=== PATIENT | female | born 1930 | race Caucasian/White ===

== ENCOUNTER 2016-10-25 14:25 | Outpatient (CLI) | payer MEDICARE ==
[2016-10-25 15:24] LABS: #Basophils 0.1 thou/uL (0.0-0.2); #Eosinphils 0.1 thou/uL (0.0-0.7); #Monocytes 0.6 thou/uL (0.11-0.59); #Neutrophils 4.6 thou/uL (1.40-6.50); %Basophils 0.8 % (0.0-1.0); %Eosinophils 2.2 % (0.0-10.0); %Lymphocytes 15.6 % (21.0-51.0); %Monocytes 9.9 % (0.0-10.0); Hematocrit 29.8 % (36.0-47.0); Mean Platelet Volume 8.7 fL (7.4-10.4); Red Blood Cell (RBC) Count 3.86 mill/uL (4.20-5.40); White Blood Cell (WBC) Count 6.4 thou/uL (4.8-10.8)
[2016-10-25 15:29] LABS: ALT (SGPT) 11 U/L (0-55); AST (SGOT) 24 U/L (5-34); Alkaline Phosphatase 120 U/L (40-150); Anion Gap 14 mmol/L (10-20); BUN (Urea Nitrogen) 25 mg/dL (9.8-20.1); Calc. Creatinine Clearance 0 mL/min (70-130); Calcium 8.6 mg/dL (7.8-10.44); Carbon Dioxide 25 mmol/L (23-31); Chloride 110 mmol/L (98-107); Estimated GFR-MDRD 38; Globulin 2.9 g/dL (2.4-3.5); Protein, Total 6.6 g/dL (5.8-8.1)
--- NOTE | 2016-10-26 07:33 | RAD ---
CHEST TWO VIEWS HISTORY: Dyspnea. COMPARISON: 10/30/2014 FINDINGS: The cardiac silhouette is magnified and enlarged. The pulmonary vasculature is at the u pper limits of normal. The mediastinum is midline with aortic calcification and sternotomy wires. Blunting of the left lateral costophrenic angle has the appearance of left pleural fluid. IMPRESSION 1. Cardiomegaly. 2. Left pleural fluid with pulmonary vascular congestion. 3. Atherosclerosis. POS: [facility]
== END 2016-10-25 14:26 | disposition home or self-care (01) ==
LOC: NAV RAD 14:25
PROVIDERS: ATTEND Internal Medicine
DX: I11.0 Hypertensive heart disease with heart failure (principal); I50.22 Chronic systolic (congestive) heart failure; R06.02 Shortness of breath; D50.0 Iron deficiency anemia secondary to blood loss (chronic); I45.81 Long QT syndrome; I70.90 Unspecified atherosclerosis; I45.10 Unspecified right bundle-branch block; R00.1 Bradycardia, unspecified
CPT/HCPCS: 71020; 80053; 82607; 82728; 82746; 83880; 84443; 85025; 93005

== ENCOUNTER 2016-11-01 14:54 | Outpatient (CLI) | payer MEDICARE ==
[2016-11-01 15:38] LABS: Anion Gap 16 mmol/L (10-20); BUN (Urea Nitrogen) 21 mg/dL (9.8-20.1); Calc. Creatinine Clearance 0 mL/min (70-130); Calcium 8.6 mg/dL (7.8-10.44); Carbon Dioxide 24 mmol/L (23-31); Chloride 108 mmol/L (98-107); Estimated GFR-MDRD 32
[2016-11-01 17:28] LABS: #Basophils 0.1 thou/uL (0.0-0.2); #Eosinphils 0.1 thou/uL (0.0-0.7); #Lymphocytes 0.9 thou/uL (1.20-3.40); #Monocytes 0.7 thou/uL (0.11-0.59); #Neutrophils 4.1 thou/uL (1.40-6.50); %Basophils 1.3 % (0.0-1.0); %Lymphocytes 15.7 % (21.0-51.0); %Monocytes 11.9 % (0.0-10.0); Anisocytosis SLIGHT = 6-15 cells (100X) (0-5/hpf); Hematocrit 29.7 % (36.0-47.0); Hypochromia SLIGHT = 6-15 cells (100X) (0-5/hpf); Mean Platelet Volume 8.5 fL (7.4-10.4); Microcytosis SLIGHT = 6-15 cells (100X) (0-5/hpf); Ovalocytes SLIGHT = 2-5 cells (100X) (0-1/hpf); Poikilocytosis SLIGHT = 6-15 cells (100X) (0-5/hpf); Red Blood Cell (RBC) Count 3.87 mill/uL (4.20-5.40); White Blood Cell (WBC) Count 5.9 thou/uL (4.8-10.8)
== END 2016-11-01 14:55 | disposition home or self-care (01) ==
LOC: NAVSJIPCSP 14:54
PROVIDERS: ATTEND Internal Medicine
DX: D50.0 Iron deficiency anemia secondary to blood loss (chronic) (principal); I50.22 Chronic systolic (congestive) heart failure
CPT/HCPCS: 36415; 80048; 83880; 85025; 86850; 86870; 86900; 86901

== ENCOUNTER 2016-11-02 09:25 | Inpatient (IN) | payer MEDICARE ==
[2016-11-02] MEDS ORDERED: Ondansetron ODT 4 MG TAB PO PRN (10:01)
[2016-11-02] MEDS ORDERED: Furosemide 40 MG/4 ML VIAL IVP SCH (10:15)
[2016-11-02] MEDS ORDERED: Ferrous Sulfate 325 MG TAB PO SCH (10:30)
[2016-11-02] MEDS ORDERED: Nebivolol HCl 10 MG TAB PO SCH (10:30)
[2016-11-02] MEDS ORDERED: Levothyroxine Sodium 150 MCG TAB PO SCH (10:30)
[2016-11-02] MEDS ORDERED: Potassium Chloride 10 MEQ TAB PO SCH (10:30)
[2016-11-02] MEDS ORDERED: Venlafaxine HCl XR 75 MG CAP PO SCH (10:45)
[2016-11-02 12:22] LABS: Anion Gap 14 mmol/L (10-20); BUN (Urea Nitrogen) 22 mg/dL (9.8-20.1); Calc. Creatinine Clearance 38 mL/min (70-130); Calcium 8.3 mg/dL (7.8-10.44); Carbon Dioxide 24 mmol/L (23-31); Chloride 108 mmol/L (98-107); Estimated GFR-MDRD 35
--- NOTE | 2016-11-02 12:40 | RAD ---
RADIOGRAPH CHEST 2 VIEWS: Date: 11/02/16. Time: 10:36 a.m. HISTORY: An 86-year-old female with congestive heart failure. Followup. COMPARISON: 10/25/16. FINDINGS: Severe cardiomegaly. Diffuse pulmonary vascular engorgement. Large left pleural effusion has incre ased in volume since the prior study. Opacification of the left lower lobe has worsened since the p rior study. Little or no right pleural effusion. Sternotomy wires, and surgical clips over the lef t anterior portion of the heart. No roselia pulmonary edema. No pneumothorax. IMPRESSION: 1. Slight interval increase in volume of now large left pleural effusion. 2. Interval worsening of opacification of lower lobe, presumably atelectasis, although it would be difficult to exclude pneumonia. 3. Cardiomegaly and pulmonary vascular engorgement is evidence for mild congestive heart failure. 4. Coronary artery atherosclerotic disease: status post coronary artery bypass graft surgery. 5. No roselia pulmonary edema. GABY [] POS: [facility]
[2016-11-02 13:42] LABS: #Basophils 0.1 thou/uL (0.0-0.2); #Eosinphils 0.2 thou/uL (0.0-0.7); #Monocytes 0.6 thou/uL (0.11-0.59); %Basophils 1.3 % (0.0-1.0); %Eosinophils 4.8 % (0.0-10.0); %Lymphocytes 19.7 % (21.0-51.0); %Monocytes 12.1 % (0.0-10.0); Hematocrit 29.2 % (36.0-47.0); Mean Platelet Volume 10.6 fL (7.4-10.4); Red Blood Cell (RBC) Count 3.79 mill/uL (4.20-5.40); White Blood Cell (WBC) Count 4.8 thou/uL (4.8-10.8)
[2016-11-02] MEDS ORDERED: Furosemide 40 MG/4 ML VIAL SLOW IVP SCH (14:45)
[2016-11-02] MEDS ORDERED: Non-Formulary Item 1 EACH (Hydralazine Hcl [Hydralazine Hcl] 50 MG) PO SCH (15:00)
[2016-11-02 18:21] LABS: Hematocrit 34.1 % (36.0-47.0)
[2016-11-02 18:25] LABS: Anion Gap 14 mmol/L (10-20); BUN (Urea Nitrogen) 23 mg/dL (9.8-20.1); Calc. Creatinine Clearance 28 mL/min (70-130); Calcium 8.5 mg/dL (7.8-10.44); Carbon Dioxide 27 mmol/L (23-31); Chloride 108 mmol/L (98-107); Estimated GFR-MDRD 25
[2016-11-02] MEDS: Temazepam 15 MG CAP PO SCH (20:00)
[2016-11-02] MEDS: Atorvastatin Calcium 20 MG TAB PO SCH (20:00)
[2016-11-02] MEDS ORDERED: Simvastatin 40 MG TAB PO SCH (21:00)
[2016-11-02] MEDS ORDERED: Non-Formulary Item 1 EACH (Temazepam [Restoril] 30 MG) PO SCH (21:00)
[2016-11-03 05:50] LABS: Anion Gap 12 mmol/L (10-20); BUN (Urea Nitrogen) 26 mg/dL (9.8-20.1); Calc. Creatinine Clearance 32 mL/min (70-130); Calcium 8.2 mg/dL (7.8-10.44); Carbon Dioxide 28 mmol/L (23-31); Chloride 109 mmol/L (98-107); Estimated GFR-MDRD 29
[2016-11-03] MEDS: Furosemide 40 MG/4 ML VIAL SLOW IVP SCH ×2 (06:11→14:40)
[2016-11-03] MEDS: Levothyroxine Sodium 150 MCG TAB PO SCH (06:11)
[2016-11-03] MEDS: Ferrous Sulfate 325 MG TAB PO SCH (08:30)
[2016-11-03] MEDS: Potassium Chloride 10 MEQ TAB PO SCH (08:30)
[2016-11-03] MEDS ORDERED: Furosemide 80 MG TAB PO SCH (09:00)
[2016-11-03] MEDS ORDERED: Non-Formulary Item 1 EACH (Ferrous Sulfate [Ferrous Sulfate] 325 MG) PO SCH (09:00)
[2016-11-03] MEDS ORDERED: LEVOTHYROXINE SODIUM 150 MCG PO SCH (09:00)
[2016-11-03] MEDS ORDERED: Potassium Chloride 20 MEQ TAB PO SCH (09:00)
[2016-11-03] MEDS ORDERED: Non-Formulary Item 1 EACH (Olmesartan Medoxomil [Benicar] 40 MG) PO SCH (09:00)
[2016-11-03] MEDS: Nebivolol HCl 10 MG TAB PO SCH (09:20)
[2016-11-03] MEDS: Venlafaxine HCl XR 75 MG CAP PO SCH (09:21)
--- NOTE | 2016-11-03 10:33 | HP ---
CHIEF COMPLAINT: Recurrent shortness of breath, hypoxemia. HISTORY OF PRESENT ILLNESS: The patient is an 86-year-old white female, well known to myself with a long history of coronary artery disease, status post myocardial infarction years ago, and followed by Cardiology with a slowly progressive congestive heart failure, who was found several months ago t o have a significant GI bleeding requiring admission to the hospital with subsequent evaluation find ing only a and gastritis, hiatal hernia, colon polyp with no significant bleeding. She had symptoms of weakness and shortness of breath. At that time, resolved with transfusion. She had had, valentee r, slowly progressive shortness of breath since that time associated with progressive dyspnea on exe rtion. She has been followed by Cardiology, specifically Dr. Delgado with medical treatment, with most recent echocardiogram apparently not available at this time, with the finding in the office of the significant mitral regurgitation, and with a scheduled followup with Dr. Delgado next week. Ho wever, she presented to the office with increasing shortness of breath and recurrent hypoxia. Evalu ation in the office showed that her creatinine had increased from 1.32-1.53 and her BNP had increase d from 788-1313. Her chest x-ray showed large left pleural effusion, with left lower lobe atelectas is and infiltrate, cardiomegaly and pulmonary congestion consistent with congestive heart failure. She had been compliant to her medications of furosemide 40 mg daily, but refused to take more this a s she stated that she was going to bathroom constantly. She was also taking her medication Bystolic 10 mg daily, olmesartan 40 mg daily, and hydralazine 50 three times daily. She also is on ferrous sulfate since her recent GI bleed and is continued on baby aspirin 81 mg daily, levothyroxine 150 mc g daily, Protonix 40 daily, simvastatin 40 nightly, temazepam 30 mg nightly, and Venlafaxine 75 mg d aily. She has been unable to remain at home and await for Cardiology apartment and therefore was ad mitted to the hospital. She was found to have a decrease in her hemoglobin from 11.2 several months ago to 8.6. It is felt this may have caused a contribution to her decompensation of congestive hea rt failure. Therefore, she was elected to be admitted to the hospital for transfusion 1 unit of pac ked cells while she was aggressively diuresed as mentioned above. Her renal function has been fairl y stable, but she appears to be having congestive heart failure. Her physical examination did in th e office show a significant mitral regurgitation and murmur. It is felt this may be the etiology of her worsening symptomatology. PAST MEDICAL HISTORY: Otherwise remarkable for cancer of the breast greater than 20 years ago, stat us post right mastectomy; longstanding history of hypertension, well controlled; hypothyroidism, wel l controlled. PAST SURGICAL HISTORY: Positive for a left knee replacement, hysterectomy. SOCIAL HISTORY: She lives with her of many years, not very active more, because of increasi ng peripheral edema and weakness. MEDICATIONS: As above. REVIEW OF SYSTEMS: HEENT: She denies any headaches, dizziness, change in vision or hearing, hoarseness or dysphagia. PULMONARY: She denies any cough except, when she lies down at nighttime. She has no sputum product ion. She denies any wheezing. CARDIOVASCULAR: She denies chest pain, orthopnea, paroxysmal nocturnal dyspnea or edema. GASTROINTESTINAL: She denies nausea, vomiting, diarrhea, constipation, or abdominal pain. GENITOURINARY: She denies dysuria, hematuria, or nocturia. Does have recurrent incontinence. MUSCULOSKELETAL: She has significant swelling and stiffness in joints, knees and lower legs with a history of cellulitis in the past. NEUROLOGIC: She denies localized numbness or weakness in arms or extremities. PHYSICAL EXAMINATION: GENERAL: The patient is an elderly obese white female, in no distress at rest on significant dyspne a on exertion. VITAL SIGNS: Showed to have blood pressure 134/58, pulse 55 and regular, respirations 18, O2 sats 9 4% on 2 liters, 89% on room air, and temperature is 95.9. HEENT: Pupils are equal, round, and react to light and accommodation. Sclerae are anicteric. Conj unctivae pale. Oral mucous membranes well hydrated. NECK: Supple, no nodes or masses. JVP is not elevated. LUNGS: Clear with decreased breath sounds in the left base. CARDIAC: Shows slow regular rhythm. There is an S4 is a 3/6 holosystolic murmur heard over the ent shweta chest and radiated to the axilla. ABDOMEN: Obese and nontender with no masses or organomegaly. EXTREMITIES: Showed 2+ edema. No clubbing, cyanosis. NEUROLOGICAL: Intact. LABORATORY DATA: Shows sodium 143, potassium 3.4, chloride 108, bicarbonate 24, BUN 22, creatinine 1.4, glucose 87, and calcium 8.3. White count 4800, hematocrit 29, and hemoglobin 8.6. Chest x-ray is as above. EKG shows sinus bradycardia. ASSESSMENT: The patient is an 86-year-old white female with a history of coronary artery disease, h ypertension, presents with increasing shortness of breath, and was found to have a large left pleura l effusion and was significantly increased mitral regurgitation murmur and increasing dyspnea on exe rtion and hypoxia on exertion. She has been found to have GI bleed in the past, which has caused he r some exacerbation of congestive heart failure. This may be causing some of her etiology of her sy mptomatology and will be admitted to the hospital for transfusion 1 unit of packed cells while aggre ssive diuresis with the Lasix 80 mg IV twice daily, monitoring renal function. We will also get an echocardiogram to evaluate left pleural effusion and CT scan without contrast and will be evaluated for possible home oxygen, prognosis is guarded. CODE STATUS: She is a full code.
[2016-11-03] MEDS ORDERED: Bisacodyl 10 MG SUPP PR PRN (16:01)
[2016-11-03] MEDS: Atorvastatin Calcium 20 MG TAB PO SCH (20:24)
[2016-11-03] MEDS: Temazepam 15 MG CAP PO SCH (20:24)
[2016-11-04] MEDS: Levothyroxine Sodium 150 MCG TAB PO SCH (06:15)
[2016-11-04] MEDS: Furosemide 40 MG/4 ML VIAL SLOW IVP SCH ×2 (06:15→14:44)
[2016-11-04] MEDS: Ferrous Sulfate 325 MG TAB PO SCH (08:55)
[2016-11-04] MEDS: Potassium Chloride 10 MEQ TAB PO SCH (08:56)
[2016-11-04] MEDS: Docusate 100 MG CAP PO SCH (08:56)
[2016-11-04] MEDS: Venlafaxine HCl XR 75 MG CAP PO SCH (08:56)
[2016-11-04] MEDS: Polyethylene Glycol 3350 17 GM Packet PO SCH (08:57)
[2016-11-04] MEDS: Nebivolol HCl 10 MG TAB PO SCH (08:58)
--- NOTE | 2016-11-04 11:14 | RAD ---
2 VIEWS CHEST: Date: 11/04/16 PROVIDED CLINICAL HISTORY: Congestive heart failure. FINDINGS: Comparison with 11/02/16. The cardiac silhouette remains enlarged. Median sternotomy changes and atherosclerosis are redemonst rated. Left basilar pleural parenchymal opacity appears unchanged as compared with the prior study. Hiatal hernia is suspected. IMPRESSION: Stable radiographic appearance of the chest. POS: [facility]
[2016-11-04 11:47] LABS: Anion Gap 11 mmol/L (10-20); BUN (Urea Nitrogen) 30 mg/dL (9.8-20.1); Calc. Creatinine Clearance 34 mL/min (70-130); Calcium 8.1 mg/dL (7.8-10.44); Carbon Dioxide 29 mmol/L (23-31); Chloride 107 mmol/L (98-107); Estimated GFR-MDRD 30
[2016-11-04 11:57] LABS: #Basophils 0.1 thou/uL (0.0-0.2); #Eosinphils 0.3 thou/uL (0.0-0.7); #Lymphocytes 0.9 thou/uL (1.20-3.40); #Monocytes 0.7 thou/uL (0.11-0.59); #Neutrophils 3.9 thou/uL (1.40-6.50); %Basophils 1.3 % (0.0-1.0); %Lymphocytes 15.7 % (21.0-51.0); %Monocytes 12.3 % (0.0-10.0); Anisocytosis SLIGHT = 6-15 cells (100X) (0-5/hpf); Burr Cells SLIGHT = 2-5 cells (100X) (0-1/hpf); Hematocrit 31.6 % (36.0-47.0); Hypochromia SLIGHT = 6-15 cells (100X) (0-5/hpf); Mean Platelet Volume 8.2 fL (7.4-10.4); Microcytosis SLIGHT = 6-15 cells (100X) (0-5/hpf); Ovalocytes SLIGHT = 2-5 cells (100X) (0-1/hpf); Poikilocytosis SLIGHT = 6-15 cells (100X) (0-5/hpf); Polychromasia SLIGHT = 2-3 cells (100X) (0-2/hpf); Red Blood Cell (RBC) Count 4.01 mill/uL (4.20-5.40); White Blood Cell (WBC) Count 5.9 thou/uL (4.8-10.8)
--- NOTE | 2016-11-04 15:10 | PRG ---
DATE OF SERVICE: 11/04/2016 SUBJECTIVE: The patient states she feels better with no dyspnea at rest, but has not been walking i n the room and states she still has dyspnea on exertion in the room. Has had no chest pain, orthopn ea, paroxysmal nocturnal dyspnea, or palpitations. OBJECTIVE: VITAL SIGNS: Have shown blood pressure is stable at 124/58, temperature 97, pulse 61, respirations 20, O2 sats 96% on 2 liters, but still 88% on room air at rest. Intake and output shows output only 1000 yesterday according to the nurses, but laboratory shows linda t her renal function is improved from creatinine of 1.9 to creatinine 1.62 with diuresis, her BNP ya s improved from 1399 on th ,1044, on and 828 on the 14th. Lungs still show decreased breath sounds in the bases and chest x-ray still shows a large left pleural effusion with cardiomegaly. Sk in and extremities showed no edema. ASSESSMENT: Improving acute on chronic congestive heart failure with aggressive diuresis with impro guillermina renal function and improved biochemical markers of BNP, but with persistent dyspnea on severe ex ertion as patient has improved with IV diuresis. We will continue the IV Lasix. Continue to monito r closely with repeat basic metabolic profile, BNP in the a.m. We will obtain an echocardiogram in the next 2 days when available and Cardiology consult if persistent symptoms. We will also evaluate for possible home O2 and awaiting follow up with Cardiology.
[2016-11-04] MEDS: Atorvastatin Calcium 20 MG TAB PO SCH (21:21)
[2016-11-04] MEDS: Temazepam 15 MG CAP PO SCH (21:21)
[2016-11-05 05:43] LABS: Anion Gap 12 mmol/L (10-20); BUN (Urea Nitrogen) 30 mg/dL (9.8-20.1); Calc. Creatinine Clearance 36 mL/min (70-130); Calcium 8.1 mg/dL (7.8-10.44); Carbon Dioxide 30 mmol/L (23-31); Chloride 105 mmol/L (98-107); Estimated GFR-MDRD 34
[2016-11-05] MEDS: Levothyroxine Sodium 150 MCG TAB PO SCH (06:25)
[2016-11-05] MEDS: Furosemide 40 MG/4 ML VIAL SLOW IVP SCH ×2 (06:25→14:30)
[2016-11-05] MEDS: Potassium Chloride 10 MEQ TAB PO SCH (08:07)
[2016-11-05] MEDS: Docusate 100 MG CAP PO SCH (08:08)
[2016-11-05] MEDS: Venlafaxine HCl XR 75 MG CAP PO SCH (08:08)
[2016-11-05] MEDS: Ferrous Sulfate 325 MG TAB PO SCH (08:08)
[2016-11-05] MEDS: Polyethylene Glycol 3350 17 GM Packet PO SCH (08:09)
[2016-11-05] MEDS: Nebivolol HCl 10 MG TAB PO SCH (08:10)
--- NOTE | 2016-11-05 10:57 | PRG ---
DATE OF SERVICE: 11/05/2016 SUBJECTIVE: The patient feels better, sitting up in the bed, did not sleep well last night because of getting sleeping pill too early. Denies any chest pain, no shortness of breath, but has not been ambulating in the room. OBJECTIVE: VITAL SIGNS: Shows blood pressure is 125/59, temperature 97, pulse 54, respirations 20, O2 sats 95% on 2 liters. LUNGS: Show decreased breath sounds in the left base, but no rales, rhonchi, rubs or wheezes. CARDIAC EXAMINATION: Shows regular rhythm. No gallops or murmurs. LABORATORY DATA: Shows BNP is stable at 830. Sodium is 143, potassium 3.7, chloride 105, bicarb 30 , BUN 30, creatinine down to 1.47, glucose 91, calcium 8.1. ASSESSMENT: Slowly improving congestive heart failure with persistent left pleural effusion, persis tent mitral regurgitation. PLAN: Continue IV Lasix. His renal function continued to improve diuresis. Repeat basic metabolic profile, BNP in the a.m. Obtain echocardiogram tomorrow. Ambulate more today and hopefully wean o ff oxygen, possibly discharge tomorrow.
[2016-11-05] MEDS: Atorvastatin Calcium 20 MG TAB PO SCH (21:21)
[2016-11-05] MEDS ORDERED: Temazepam 15 MG CAP PO SCH ×2 (23:00)
[2016-11-06 05:48] LABS: Anion Gap 12 mmol/L (10-20); BUN (Urea Nitrogen) 31 mg/dL (9.8-20.1); Calc. Creatinine Clearance 39 mL/min (70-130); Calcium 8.2 mg/dL (7.8-10.44); Carbon Dioxide 31 mmol/L (23-31); Chloride 105 mmol/L (98-107); Estimated GFR-MDRD 36
[2016-11-06] MEDS: Levothyroxine Sodium 150 MCG TAB PO SCH (06:16)
[2016-11-06] MEDS: Furosemide 40 MG/4 ML VIAL SLOW IVP SCH (06:16)
--- NOTE | 2016-11-06 07:32 | PRG ---
DATE OF SERVICE: 11/06/2016 SUBJECTIVE: The patient feels better with no symptoms of shortness of breath at rest and with walki ng back and forth in the bathroom, but is still having need for oxygen according to the nurses. She is denying any chest pain or palpitations, nausea or vomiting. OBJECTIVE: Blood pressure is stable 139/64, O2 sats 94% on 2 liters, but still drops down to 88 to 89% on room air, pulse 58, temperature 97.4. Sodium improved to 144, potassium 3.7, chloride 105, b icarbonate 31, BUN stable at 31, creatinine still improved slightly to 1.38 and 1.47. GFR is improv ed slightly to 36 from admission GFR of 25. Lungs show clear except for absent breath sounds in the left base. Cardiac examination shows regular rhythm. Skin and extremities showed no edema. ASSESSMENT: Resolving congestive heart failure, improving azotemia with diuresis that appeared to s tabilize with BNP stabilizing and creatinine only improving slightly on IV Lasix. The left pleural effusion still present on physical examination and we will get chest x-ray to determine any improvem ent radiologically and will get echocardiogram today to determine severity of mitral regurg and LV d ysfunction. PLAN: Change IV Lasix to oral Lasix today to evaluate for home O2. The patient is still hypoxic wh en off of oxygen. Will have echocardiogram and chest x-ray today, possibly discharge home today or tomorrow to follow up with Dr. Delgado, registration officer, as an outpatient.
[2016-11-06] MEDS: Ferrous Sulfate 325 MG TAB PO SCH (08:40)
[2016-11-06] MEDS: Potassium Chloride 10 MEQ TAB PO SCH (08:41)
[2016-11-06] MEDS: Docusate 100 MG CAP PO SCH (08:41)
[2016-11-06] MEDS: Furosemide 80 MG TAB PO SCH ×4 (08:41→16:25)
[2016-11-06] MEDS: Nebivolol HCl 10 MG TAB PO SCH (08:44)
[2016-11-06] MEDS: Polyethylene Glycol 3350 17 GM Packet PO SCH (08:45)
[2016-11-06] MEDS: Venlafaxine HCl XR 75 MG CAP PO SCH (08:45)
[2016-11-06 16:28] VITALS: BMI 30.5
--- NOTE | 2016-11-06 18:19 | PRG ---
DATE OF SERVICE: 11/06/2016 SUBJECTIVE: The patient was sitting in the bed comfortable at rest. Still having dyspnea on walking to the bathroom. Tolerating diuretic well with significant diuresis. OBJECTIVE: Shows her blood pressure is decreased somewhat to 106/55, O2 sats 96 % on 2 liters, but drops to 88% at rest and 85% with ambulation, pulse of 61, temperature 95.8. Lungs show decreased breath sounds in the left base. No rales or rhonchi. Skin and extremities show 1-2+ edema. LABORATORY DATA: Shows a creatinine improved further to 1.38, but BNP still elevated at 1022. ASSESSMENT: Improving congestive heart failure, prerenal azotemia, but appeared to be stabilizing with persistent hypoxemia with O2 sat of 88% at rest and down to 85% with ambulation, most likely due to decompensated congestive heart failure, possible mitral regurgitation. PLAN: Prescription for home O2 at 2 liters constantly, this patient was hypoxic at rest, but also had patient with _oxygen at home ____ she does ambulate at home with only symptoms of dyspnea and hypoxia with rest. Refer Dr. Delgado next week for further evaluation and determination of further therapy after echocardiogram done. [facility]
[2016-11-06] MEDS: Atorvastatin Calcium 20 MG TAB PO SCH (20:31)
[2016-11-06] MEDS ORDERED: Temazepam 15 MG CAP PO SCH (21:00)
--- NOTE | 2016-11-06 21:06 | RAD ---
RADIOGRAPH CHEST 2 VIEWS: Date: 11-06-16 Time: 7:36 P.M. HISTORY: 86-year-old female with left pleural effusion and congestive heart failure. COMPARISON: 11-04-16 FINDINGS: Severe cardiomegaly. Air-fluid level within a large left retrocardiac mass. Large left pleural eff usion. Tiny or no right pleural effusion. The lungs are overexposed. No overt pulmonary alveolar edema. No large pneumothorax identified. Findings of previous CABG. The cardiomegaly appears wors e now than previously, but it is uncertain whether or not this is due to positional differences. Th ere has been no other interval change. IMPRESSION: 1. Severe cardiomegaly. 2. Large left pleural effusion. 3. Large hiatal hernia. 4. No major interval change. GABY POS: [facility]
[2016-11-07] MEDS: Levothyroxine Sodium 150 MCG TAB PO SCH (05:26)
[2016-11-07 07:58] LABS: Anion Gap 13 mmol/L (10-20); BUN (Urea Nitrogen) 34 mg/dL (9.8-20.1); Calc. Creatinine Clearance 39 mL/min (70-130); Calcium 8.2 mg/dL (7.8-10.44); Carbon Dioxide 30 mmol/L (23-31); Chloride 104 mmol/L (98-107); Estimated GFR-MDRD 36
[2016-11-07] MEDS: Potassium Chloride 10 MEQ TAB PO SCH (08:33)
[2016-11-07] MEDS: Ferrous Sulfate 325 MG TAB PO SCH (08:33)
[2016-11-07] MEDS: Docusate 100 MG CAP PO SCH (08:34)
[2016-11-07] MEDS: Furosemide 80 MG TAB PO SCH (08:34)
[2016-11-07] MEDS: Polyethylene Glycol 3350 17 GM Packet PO SCH (08:35)
[2016-11-07] MEDS: Venlafaxine HCl XR 75 MG CAP PO SCH (08:36)
[2016-11-07] MEDS: Nebivolol HCl 10 MG TAB PO SCH (08:38)
[2016-11-07 12:54] VITALS: BP 123/58; TEMP 96
== END 2016-11-07 13:10 | disposition home health service (06) | DRG 292 ==
LOC: NAV ACUTE 09:25 → UNDOADMOB 09:25 → NAV ACUTE 17:54 → INTOOBSV 17:54 → OBSVTOIN 17:54
PROVIDERS: ADMIT Internal Medicine; ATTEND Internal Medicine
PROC: 30233N1 Transfusion of Nonautologous Red Blood Cells into Peripheral Vein, Percutaneous Approach (ICD-10-PCS; principal; 2016-11-02)
DX: I50.9 Heart failure, unspecified (principal); J90 Pleural effusion, not elsewhere classified; D50.0 Iron deficiency anemia secondary to blood loss (chronic); I34.0 Nonrheumatic mitral (valve) insufficiency; I10 Essential (primary) hypertension; I25.10 Atherosclerotic heart disease of native coronary artery without angina pectoris; I25.2 Old myocardial infarction; Z80.3 Family history of malignant neoplasm of breast; E03.9 Hypothyroidism, unspecified
CPT/HCPCS: 36415; 36430; 71020; 80048; 83880; 85025; 86850; 86870; 86900; 86901; 86922; A4216; J1940; P9016

== ENCOUNTER 2017-01-18 13:43 | Outpatient (CLI) | payer MEDICARE ==
[2017-01-18 14:34] LABS: #Eosinphils 0.1 thou/uL (0.0-0.7); #Lymphocytes 0.9 thou/uL (1.20-3.40); #Monocytes 0.6 thou/uL (0.11-0.59); #Neutrophils 3.6 thou/uL (1.40-6.50); %Basophils 0.9 % (0.0-1.0); %Eosinophils 2.3 % (0.0-10.0); %Lymphocytes 16.6 % (21.0-51.0); %Monocytes 11.2 % (0.0-10.0); %Neutrophils 68.9 % (42.0-75.0); Hemoglobin 9.9 g/dL (12.0-16.0); MDiff Complete? YES; Mean Corpuscular HGB CONC 30.1 g/dL (32.0-36.0); Mean Corpuscular Volume 89.7 fl (81.0-99.0); Mean Platelet Volume 8.8 fL (7.4-10.4); Platelet Count 173 thou/uL (130-400); RBC Distribution Width 21.2 % (11.5-14.5); Red Blood Cell (RBC) Count 3.66 mill/uL (4.20-5.40); White Blood Cell (WBC) Count 5.2 thou/uL (4.8-10.8)
[2017-01-18 14:35] LABS: Anisocytosis SLIGHT = 6-15 cells (100X) (0-5/hpf); Hypochromia SLIGHT = 6-15 cells (100X) (0-5/hpf); PLT Morphology Comment Appears Adequate; Poikilocytosis SLIGHT = 6-15 cells (100X) (0-5/hpf)
[2017-01-18 14:38] LABS: ALT (SGPT) 17 U/L (0-55); AST (SGOT) 32 U/L (5-34); Albumin 3.8 g/dL (3.4-4.8); Alkaline Phosphatase 150 U/L (40-150); Anion Gap 15 mmol/L (10-20); BUN (Urea Nitrogen) 28 mg/dL (9.8-20.1); Bilirubin, Total 0.8 mg/dL (0.2-1.2); Calc. Creatinine Clearance 0 mL/min (70-130); Calcium 8.4 mg/dL (7.8-10.44); Carbon Dioxide 29 mmol/L (23-31); Chloride 103 mmol/L (98-107); Estimated GFR-MDRD 32; Globulin 2.5 g/dL (2.4-3.5); Glucose 88 mg/dL (83-110); Potassium 4.4 mmol/L (3.5-5.1); Protein, Total 6.3 g/dL (5.8-8.1); Sodium 143 mmol/L (136-145)
== END 2017-01-18 13:44 | disposition home or self-care (01) ==
LOC: NAVSJIPCSP 13:43
PROVIDERS: ATTEND Internal Medicine
DX: I10 Essential (primary) hypertension (principal); E03.9 Hypothyroidism, unspecified; K25.4 Chronic or unspecified gastric ulcer with hemorrhage; F32.9 Major depressive disorder, single episode, unspecified
CPT/HCPCS: 80053; 83880; 84443; 85025

== ENCOUNTER 2017-01-30 09:31 | Outpatient (CLI) | payer MEDICARE ==
[2017-01-30 10:17] LABS: ALT (SGPT) 17 U/L (0-55); AST (SGOT) 29 U/L (5-34); Albumin 3.8 g/dL (3.4-4.8); Alkaline Phosphatase 147 U/L (40-150); Anion Gap 16 mmol/L (10-20); BUN (Urea Nitrogen) 36 mg/dL (9.8-20.1); Bilirubin, Total 0.7 mg/dL (0.2-1.2); Calc. Creatinine Clearance 0 mL/min (70-130); Carbon Dioxide 31 mmol/L (23-31); Cardiac Risk 2.1 (Less than 4.5); Chloride 103 mmol/L (98-107); Cholesterol 113 mg/dL (< 200 Desired); Estimated GFR-MDRD 30; Globulin 2.9 g/dL (2.4-3.5); Glucose 89 mg/dL (83-110); HDL Cholesterol 54 mg/dL (>60 Neg Risk); LDL Cholesterol, Calculated 48 mg/dL; Potassium 4.6 mmol/L (3.5-5.1); Protein, Total 6.7 g/dL (5.8-8.1); Sodium 145 mmol/L (136-145); Triglycerides 57 mg/dL (Less than 150)
== END 2017-01-30 09:32 | disposition home or self-care (01) ==
LOC: NAV LAB 09:31
PROVIDERS: ATTEND Internal Medicine Cardiovascular Disease
DX: E78.00 Pure hypercholesterolemia, unspecified (principal)
CPT/HCPCS: 36415; 80053; 80061

== ENCOUNTER → 2017-04-01 | Emergency (ER) | payer MEDICARE ==
[~2017-04-01] MED LIST: Furosemide 20 MG/2 ML VIAL ONE; Furosemide 40 MG/4 ML VIAL ONE; Phenytoin Sodium 100 MG/2 ML VIAL ONE; Sodium Chloride 0.9% 100 ML ONE; cefTRIAXone\\ROCEPHIN 1 GM VIAL ONE; methylPREDNISolone Sod Succ/PF 125 MG/2 ML VIAL ONE
[2017-04-01 19:05] LABS: #Basophils 0.1 thou/uL (0.0-0.2); #Eosinphils 0.1 thou/uL (0.0-0.7); #Lymphocytes 0.7 thou/uL (1.20-3.40); #Monocytes 0.5 thou/uL (0.11-0.59); %Eosinophils 1.7 % (0.0-10.0); %Lymphocytes 12.9 % (21.0-51.0); %Monocytes 8.5 % (0.0-10.0); %Neutrophils 75.9 % (42.0-75.0); Hemoglobin 12.3 g/dL (12.0-16.0); Mean Corpuscular HGB CONC 29.9 g/dL (32.0-36.0); Mean Corpuscular Hemoglobin 27.6 pg (27.0-31.0); Mean Corpuscular Volume 92.4 fl (81.0-99.0); Mean Platelet Volume 10.1 fL (7.4-10.4); Platelet Count 130 thou/uL (130-400); RBC Distribution Width 17.5 % (11.5-14.5); Red Blood Cell (RBC) Count 4.46 mill/uL (4.20-5.40); White Blood Cell (WBC) Count 5.3 thou/uL (4.8-10.8)
[2017-04-01 19:20] LABS: ALT (SGPT) 10 U/L (8-55); AST (SGOT) 22 U/L (5-34); Albumin 3.9 g/dL (3.4-4.8); Alkaline Phosphatase 185 U/L (40-150); Anion Gap 18 mmol/L (10-20); BUN (Urea Nitrogen) 35 mg/dL (9.8-20.1); Calc. Creatinine Clearance 0 mL/min (70-130); Calcium 8.5 mg/dL (7.8-10.44); Carbon Dioxide 27 mmol/L (23-31); Chloride 102 mmol/L (98-107); Estimated GFR-MDRD 30; Glucose 103 mg/dL (83-110); Protein, Total 6.9 g/dL (6.0-8.3); Sodium 143 mmol/L (136-145)
[2017-04-01 19:22] LABS: Troponin I 0.072 ng/mL (< 0.028)
--- NOTE | 2017-04-01 19:27 | RAD ---
CHEST ONE VIEW: History: Difficulty breathing. Comparison: Chest two view, 03-01-17 FINDINGS: Large layering left pleural effusion. Small right effusion. There is pulmonary venous congestion and cardiomegaly. No pneumothorax. IMPRESSION: Large left and small right effusion, similar to slightly increased from comparison examination with edema and pulmonary venous congestion. POS: [facility]
== END ==
LOC: NAV ERS 18:01
DX: J91.8 Pleural effusion in other conditions classified elsewhere (principal); R79.89 Other specified abnormal findings of blood chemistry; E03.9 Hypothyroidism, unspecified; E78.5 Hyperlipidemia, unspecified; I10 Essential (primary) hypertension; F32.9 Major depressive disorder, single episode, unspecified; Z79.82 Long term (current) use of aspirin; Z79.899 Other long term (current) drug therapy
CPT/HCPCS: 71010; 80053; 82553; 83880; 84484; 85025; 93005; 94640; 94760; 96365; 96375; J0696; J1940; J2930; J7050; J7620

== ENCOUNTER 2017-04-10 11:57 | Outpatient (CLI) | payer MEDICARE ==
[2017-04-10 12:30] LABS: #Basophils 0.1 thou/uL (0.0-0.2); #Eosinphils 0.2 thou/uL (0.0-0.7); #Lymphocytes 0.9 thou/uL (1.20-3.40); #Monocytes 0.7 thou/uL (0.11-0.59); #Neutrophils 4.4 thou/uL (1.40-6.50); %Basophils 0.9 % (0.0-1.0); %Eosinophils 3.5 % (0.0-10.0); %Monocytes 11.8 % (0.0-10.0); %Neutrophils 69.8 % (42.0-75.0); Hemoglobin 12.8 g/dL (12.0-16.0); Mean Corpuscular HGB CONC 30.1 g/dL (32.0-36.0); Mean Corpuscular Volume 93.1 fl (81.0-99.0); Mean Platelet Volume 8.9 fL (7.4-10.4); Platelet Count 140 thou/uL (130-400); Red Blood Cell (RBC) Count 4.57 mill/uL (4.20-5.40); White Blood Cell (WBC) Count 6.3 thou/uL (4.8-10.8)
[2017-04-10 12:31] LABS: Anion Gap 16 mmol/L (10-20); BUN (Urea Nitrogen) 31 mg/dL (9.8-20.1); Calc. Creatinine Clearance 0 mL/min (70-130); Calcium 9.1 mg/dL (7.8-10.44); Carbon Dioxide 33 mmol/L (23-31); Chloride 103 mmol/L (98-107); Estimated GFR-MDRD 41; Glucose 102 mg/dL (83-110); Potassium 3.9 mmol/L (3.5-5.1); Sodium 148 mmol/L (136-145)
== END 2017-04-10 11:58 | disposition home or self-care (01) ==
LOC: NAVSJIPCSP 11:57 → NAV LAB 11:58
PROVIDERS: ATTEND Internal Medicine
DX: E03.9 Hypothyroidism, unspecified (principal); Z79.899 Other long term (current) drug therapy
CPT/HCPCS: 36415; 80048; 84443; 85025

== ENCOUNTER 2017-04-20 09:56 | Outpatient (CLI) | payer MEDICARE ==
[2017-04-20 10:46] LABS: ALT (SGPT) 24 U/L (8-55); AST (SGOT) 38 U/L (5-34); Albumin 3.5 g/dL (3.4-4.8); Alkaline Phosphatase 203 U/L (40-150); Anion Gap 13 mmol/L (10-20); BUN (Urea Nitrogen) 22 mg/dL (9.8-20.1); Bilirubin, Total 0.8 mg/dL (0.2-1.2); Calc. Creatinine Clearance 0 mL/min (70-130); Calcium 8.6 mg/dL (7.8-10.44); Carbon Dioxide 33 mmol/L (23-31); Cardiac Risk 2.8 (Less than 4.5); Chloride 102 mmol/L (98-107); Cholesterol 131 mg/dl (< 200 Desired); Estimated GFR-MDRD 54; Globulin 2.5 g/dL (2.4-3.5); Glucose 94 mg/dL (83-110); HDL Cholesterol 46 mg/dL (>60 Neg Risk); LDL Cholesterol, Calculated 71 mg/dL; Potassium 4.1 mmol/L (3.5-5.1); Sodium 144 mmol/L (136-145); Triglycerides 72 mg/dL (Less than 150)
== END 2017-04-20 09:57 | disposition home or self-care (01) ==
LOC: NAV LAB 09:56
PROVIDERS: ATTEND Internal Medicine Cardiovascular Disease
DX: E78.00 Pure hypercholesterolemia, unspecified (principal); E03.9 Hypothyroidism, unspecified
CPT/HCPCS: 36415; 80053; 80061; 84443

== ENCOUNTER 2017-05-15 13:24 | Outpatient (CLI) | payer MEDICARE ==
[2017-05-15 13:47] LABS: #Basophils 0.1 thou/uL (0.0-0.2); #Eosinphils 0.3 thou/uL (0.0-0.7); #Lymphocytes 1.9 thou/uL (1.20-3.40); #Monocytes 0.8 thou/uL (0.11-0.59); %Basophils 0.9 % (0.0-1.0); %Eosinophils 3.1 % (0.0-10.0); %Lymphocytes 23.2 % (21.0-51.0); %Neutrophils 62.8 % (42.0-75.0); Hemoglobin 13.4 g/dL (12.0-16.0); Mean Corpuscular HGB CONC 30.8 g/dL (32.0-36.0); Mean Corpuscular Hemoglobin 28.5 pg (27.0-31.0); Mean Corpuscular Volume 92.5 fl (81.0-99.0); Mean Platelet Volume 8.9 fL (7.4-10.4); Platelet Count 149 thou/uL (130-400); RBC Distribution Width 15.6 % (11.5-14.5)
[2017-05-15 13:59] LABS: ALT (SGPT) 17 U/L (8-55); AST (SGOT) 30 U/L (5-34); Albumin 3.9 g/dL (3.4-4.8); Alkaline Phosphatase 206 U/L (40-150); Anion Gap 17 mmol/L (10-20); BUN (Urea Nitrogen) 27 mg/dL (9.8-20.1); Bilirubin, Total 0.6 mg/dL (0.2-1.2); Calc. Creatinine Clearance 0 mL/min (70-130); Calcium 9.1 mg/dL (7.8-10.44); Carbon Dioxide 27 mmol/L (23-31); Cardiac Risk 3.1 (Less than 4.5); Chloride 102 mmol/L (98-107); Cholesterol 153 mg/dl (< 200 Desired); Estimated GFR-MDRD 40; Globulin 2.5 g/dL (2.4-3.5); Glucose 70 mg/dL (83-110); HDL Cholesterol 49 mg/dL (>60 Neg Risk); LDL Cholesterol, Calculated 80 mg/dL; Potassium 4.7 mmol/L (3.5-5.1); Protein, Total 6.4 g/dL (6.0-8.3); Sodium 141 mmol/L (136-145); Triglycerides 118 mg/dL (Less than 150)
== END 2017-05-15 13:25 | disposition home or self-care (01) ==
LOC: NAVSJIPCSP 13:24
PROVIDERS: ATTEND Internal Medicine
DX: I11.0 Hypertensive heart disease with heart failure (principal); I50.40 Unspecified combined systolic (congestive) and diastolic (congestive) heart failure; E03.9 Hypothyroidism, unspecified; D50.0 Iron deficiency anemia secondary to blood loss (chronic); I25.10 Atherosclerotic heart disease of native coronary artery without angina pectoris
CPT/HCPCS: 36415; 80053; 80061; 84443; 85025

== ENCOUNTER 2017-07-18 09:41 | Outpatient (CLI) | payer MEDICARE ==
[2017-07-18 10:14] LABS: #Basophils 0.1 thou/uL (0.0-0.2); #Eosinphils 0.2 thou/uL (0.0-0.7); #Lymphocytes 1.3 thou/uL (1.20-3.40); #Monocytes 0.5 thou/uL (0.11-0.59); #Neutrophils 3.3 thou/uL (1.40-6.50); %Basophils 1.1 % (0.0-1.0); %Eosinophils 3.2 % (0.0-10.0); %Lymphocytes 25.3 % (21.0-51.0); %Neutrophils 61.5 % (42.0-75.0); Hemoglobin 12.8 g/dL (12.0-16.0); Mean Corpuscular HGB CONC 31.6 g/dL (32.0-36.0); Mean Corpuscular Hemoglobin 29.8 pg (27.0-31.0); Mean Corpuscular Volume 94.5 fl (81.0-99.0); Mean Platelet Volume 7.9 fL (7.4-10.4); Platelet Count 142 thou/uL (130-400); RBC Distribution Width 13.7 % (11.5-14.5); Red Blood Cell (RBC) Count 4.29 mill/uL (4.20-5.40); White Blood Cell (WBC) Count 5.3 thou/uL (4.8-10.8)
[2017-07-18 10:34] LABS: Anion Gap 13 mmol/L (10-20); BUN (Urea Nitrogen) 31 mg/dL (9.8-20.1); Calc. Creatinine Clearance 0 mL/min (70-130); Calcium 8.7 mg/dL (7.8-10.44); Carbon Dioxide 29 mmol/L (23-31); Chloride 105 mmol/L (98-107); Estimated GFR-MDRD 30; Glucose 96 mg/dL (83-110); Potassium 4.3 mmol/L (3.5-5.1); Sodium 143 mmol/L (136-145)
[2017-07-19 08:58] LABS: ALT (SGPT) 23 U/L (8-55); AST (SGOT) 26 U/L (5-34); Albumin 3.8 g/dL (3.4-4.8); Alkaline Phosphatase 175 U/L (40-150); Bilirubin, Total 0.5 mg/dL (0.2-1.2); Cardiac Risk 2.1 (Less than 4.5); Cholesterol 126 mg/dl (< 200 Desired); Globulin 2.2 g/dL (2.4-3.5); HDL Cholesterol 60 mg/dL (>60 Neg Risk); LDL Cholesterol, Calculated 56 mg/dL; Triglycerides 48 mg/dL (Less than 150)
== END 2017-07-18 09:42 | disposition home or self-care (01) ==
LOC: NAVSJIPCSP 09:41 → NAV LAB 09:42
PROVIDERS: ATTEND Internal Medicine
DX: E03.9 Hypothyroidism, unspecified (principal); D64.9 Anemia, unspecified; E78.2 Mixed hyperlipidemia; I50.40 Unspecified combined systolic (congestive) and diastolic (congestive) heart failure
CPT/HCPCS: 36415; 80048; 80053; 80061; 84443; 85025